=== PATIENT | female | born 1995 | race Caucasian/White ===

== ENCOUNTER 2021-04-09 02:42 | Inpatient (IN) | payer OTHER ==
[~2021-04-09] VITALS: Ht 170.2 cm; Wt 68.9 kg
[2021-04-09 04:41] LABS: HEMOGLOBIN 11.2 gm/dl (12.3-15.3); RED BLOOD COUNT 3.72 M/UL (4.00-5.10); WHITE BLOOD COUNT 8.9 K/UL (4.5-11.0)
[2021-04-09] MEDS ORDERED: PRENATAL VITAM1 EAC4 PO (06:36)
[2021-04-09] MEDS ORDERED: SUBUTEX 8 MG TAB8 MG SL (06:37)
[2021-04-10 06:23] LABS: HEMOGLOBIN 10.1 gm/dl (12.3-15.3)
[2021-04-11] MEDS ORDERED: IBUPROFEN600 MG PO (13:54)
[2021-04-11] MEDS ORDERED: DOCUSATE SODIU100 MG PO (13:54)
[2021-04-12] MEDS ORDERED: LABETALOL HCL200 MG PO (08:35)
== END 2021-04-12 14:45 | disposition home or self-care (01) | DRG 806 ==
LOC: GENOP 02:42 → OB 03:41
PROVIDERS: Obstetrics & Gynecology; ADMIT Obstetrics & Gynecology
PROC: 10D07Z3 Extraction of Products of Conception, Low Forceps, Via Natural or Artificial Opening (ICD-10-PCS; principal; 2021-04-09)
PROC: 4A1HXCZ Monitoring of Products of Conception, Cardiac Rate, External Approach (ICD-10-PCS; 2021-04-09)
PROC: 10907ZC Drainage of Amniotic Fluid, Therapeutic from Products of Conception, Via Natural or Artificial Opening (ICD-10-PCS; 2021-04-09)
PROC: 0W8NXZZ Division of Female Perineum, External Approach (ICD-10-PCS; 2021-04-09)
DX: O10.92 Unspecified pre-existing hypertension complicating childbirth (principal); O99.324 Drug use complicating childbirth; Z37.0 Single live birth; F11.20 Opioid dependence, uncomplicated; Z20.822 Contact with and (suspected) exposure to COVID-19; O69.1XX0 Labor and delivery complicated by cord around neck, with compression, not applicable or unspecified; Z3A.38 38 weeks gestation of pregnancy
CPT/HCPCS: 36415; 51702; 80307; 81001; 82247; 82248; 82565; 82570; 82800; 84156; 84450; 84460; 84550; 85014; 85018; 85025; 85379; 85384; 85610; 85730; 90471; 90707; 90715; J0360; J0690; J1200; J2405; J2590; J7030; J7120; U0002